=== PATIENT | female | born 1980 | race African-American/Black ===

== ENCOUNTER 2018-01-17 10:35 | Emergency (ER) | payer OTHER ==
[~2018-01-17] VITALS: Ht 157.5 cm; Wt 79.5 kg
[~2018-01-17 10:35] MED LIST: ATEN-187
[2018-01-17] MEDS ORDERED: BP MED (10:38)
[2018-01-17] MEDS ORDERED: HYDROCODONE/ACETAMINOPHEN 10-325 MG TABLET PO ONE (12:45)
[2018-01-17 13:25] VITALS: BP 143/94
== END 2018-01-17 13:57 | disposition home or self-care (01) ==
LOC: EMS 10:37
DX: M25.512 Pain in left shoulder (principal); R20.2 Paresthesia of skin
CPT/HCPCS: 99284

== ENCOUNTER 2018-01-22 13:29 | Emergency (ER) | payer OTHER ==
[~2018-01-22] VITALS: Ht 157.5 cm; Wt 77.3 kg
[~2018-01-22 13:29] MED LIST changes: -ATEN-187; +BP MED
[2018-01-22] MEDS ORDERED: LISI10TA7 PO (13:33)
[2018-01-22] MEDS ORDERED: KETOROLAC TROMETHAMINE 60 MG/2 ML VIAL IM ONE (15:15)
[2018-01-22] MEDS ORDERED: OxyCODONE HCL/ACETAMINOPHEN 5-325 MG TABLET PO ONE (15:15)
[2018-01-22 15:47] VITALS: BP 143/81
== END 2018-01-22 15:48 | disposition home or self-care (01) ==
LOC: EMS 13:30
DX: S46.912D Strain of unspecified muscle, fascia and tendon at shoulder and upper arm level, left arm, subsequent encounter (principal); I10 Essential (primary) hypertension; G89.29 Other chronic pain; W19.XXXD Unspecified fall, subsequent encounter
CPT/HCPCS: 96372; 99283; J1885